=== PATIENT | male | born 1980 | race African-American/Black ===

== ENCOUNTER 2016-12-08 18:20 | Emergency (ER) | payer OTHER ==
[~2016-12-08] VITALS: Ht 180.3 cm; Wt 63.5 kg
[~2016-12-08 18:20] MED LIST: NORCO 5/325 TAB1 TAB PO
== END 2016-12-08 18:50 | disposition home or self-care (01) ==
LOC: CED 18:20 → CFTX 18:20
DX: H60.92 Unspecified otitis externa, left ear (principal)
CPT/HCPCS: 99282